=== PATIENT | male | born 1980 | race Caucasian/White ===

== ENCOUNTER 2021-06-25 01:37 | Emergency (ER) | payer BC ==
[~2021-06-25] VITALS: Ht 185.4 cm; Wt 83.9 kg
[~2021-06-25 01:37] MED LIST: ENBREL50 MG/1 M1 INJ
== END 2021-06-25 02:09 | disposition home or self-care (01) ==
LOC: ER 01:47
DX: R00.1 Bradycardia, unspecified (principal)
CPT/HCPCS: 93005; 99282